=== PATIENT | female | born 2000 | race Caucasian/White ===

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

== ENCOUNTER 2021-04-19 00:24 | Emergency (ER) | payer OTHER, SELFPAY ==
[2021-04-19 00:24] VITALS: BP 146/87; PULSE 138; RESP 18; TEMP 36.9; O2SAT 97; BMI 24.7
--- NOTE | 2021-04-19 01:21 | ED.RN ---
See paper charting for medication orders.
[2021-04-19 01:25] LABS: Absolute Lymphocyte Count 0.66 X10^3/uL (0.83-4.51); Absolute Neutrophil Count 7.6 X10^3/uL (2.0-7.7); Basophil# 0.01 X10^3/uL; Basophil% 0.1 % (0-1); Eosinophil# 0.02 X10^3/uL; Eosinophils% 0.2 % (0-5); Hematocrit 43.2 % (37-47); Hemoglobin 13.9 g/dL (12.0-15.0); Lymphocyte # 0.66 X10^3/ul (0.83-4.51); Lymphocyte % 7.7 % (19-41); Mean Corp Hgb Conc 32.2 g/dL (32-36); Mean Corpuscular Hgb 29.1 pg (27.0-32.0); Mean Corpuscular Volume 90.4 fL (81-99); Mean Platelet Vol. 9.8 fl (6.2-12.0); Monocyte# 0.24 X10^3/uL; Monocyte% 2.8 % (0-10); NRBC Flagged by Analyzer 0 % (0-5); Neutrophil # 7.58 X10^3/uL (2.7-7.7); Platelet Count 220 K/mm3 (150-450); RBC Distribution Width CV 12.6 % (11.6-14.6); RBC Distribution Width SD 41.7 fl (35.1-43.9); Red Blood Count 4.78 M/mm3 (4.2-5.4); White Blood Count 8.5 K/mm3 (4.4-11.0)
[2021-04-19] MEDS: 0.9% Normal Saline 1,000 ML 999 ML IV (01:51)
[2021-04-19] MEDS: Morphine 4 MG/ML Syringe IV (01:52)
[2021-04-19] MEDS: Ondansetron 4 MG/2 ML Vial IV (01:52)
[2021-04-19 02:03] LABS: AST(SGOT) 14 U/L (15-37); Alanine Aminotransfer ALT/SGPT 17 U/L (13-56); Albumin, Serum 4.3 g/dL (3.2-5.0); Alkaline Phosphatase 61 U/L (45-117); Anion Gap 7 (5-15); BUN 24 mg/dL (7-18); BUN/Creat Ratio 26.4 RATIO (10-20); Bilirubin, Direct 0.12 mg/dL (0.00-0.30); Calcium,Total 8.8 mg/dL (8.5-10.1); Chloride 108 mmol/L (98-107); Creatinine, Serum 0.91 mg/dL (0.55-1.02); EST Glomerular Filtration Rate 83 mL/min (>60); Est Glom Filt Rate - Afr Amer 101 mL/min (>60); Estimated Creatinine Clearance 81.58 ml/min; Glucose 117 mg/dL (74-106); Lipase 77 U/L (73-393); Potassium 3.6 mmol/L (3.5-5.1); Protein, Total 8.3 g/dL (6.4-8.2); Sodium Level 141 mmol/L (136-145)
[2021-04-19 02:19] LABS: Mucous, Urine 0 SEEN /hpf (<or=2+)
[2021-04-19 02:21] LABS: Color, Urine Yellow (Yellow); Glucose, Dipstick Normal (Normal); Ketone-Dipstick 15 mg/dl (Negative); Leukocyte Esterase-Dipstick 25 /ul (Negative); Nitrite-Dipstick Negative (Negative); Occult Blood-Urine Negative /ul (Negative); Protein-Dipstick 15 mg/dl (Negative); Specific Gravity, Urine 1.025 (1.002-1.030); Urine Clarity Clear (Clear); Urine Urobilinogen Normal (Normal)
[2021-04-19 02:25] LABS: Internal QC Validated? YES +Cl - CLEAR BKGD; Pregnancy, Urine Negative Negative
[2021-04-19 02:28] LABS: Urine Bilirubin Dipstick 1 mg/dL (Negative)
[2021-04-19 02:29] LABS: Bacteria 1+ /hpf (None Seen)
[2021-04-19 02:30] LABS: Red Blood Cells-Urine 0 SEEN /hpf (0-5); Squamous Epithelial Cells - UA 0-5 SEEN /hpf (5-10); White Blood Cells 0-5 SEEN /hpf (0-5)
--- NOTE | 2021-04-19 03:02 | EX.ED.DYSGE1 ---
HPI History of Present Illness Chief Complaint: Abd Pain Narrative Narrative: Patient is a 20-year-old female who states that yesterday she had bouts of loose stool/diarrhea. She states that today she developed generalized abdominal discomfort with bouts of nausea and vomiting. She reports that there has been no sick contact and she denies any recent antibiotic use or travel outside the country. She states that she cannot get the pain and nausea under control and secondary to this presents to the hospital for evaluation [facility] Medical History (Updated 04/19/21 @ 03:[address] Watson Barreto, DO) Asthma History of kidney stones Hx of chest pain Home Medications cephalexin 500 mg PO TID 7 Days #21 cap 04/19/21 [Rx Last Taken Unknown] ondansetron 4 mg PO Q8H PRN 7 Days #21 tab 04/19/21 [Rx Last Taken Unknown] Allergy/AdvReac Type Severity Reaction Status Date / Time No Known Allergies Allergy Verified 04/19/21 00:27 Family History Father Heart disease Surgical History H/O wisdom tooth extraction History of knee surgery Social History (Updated 02/20/18 @ 16:22 by Cody DOMINGUEZ, PA) Smoking Status: Never smoker alcohol intake: never ROS ROS ED Constitutional Constitutional ED: Denies chills or fever(s) ENT ENT ED: Denies sore throat Cardiovascular Cardiovascular: Denies chest pain Respiratory/Chest Respiratory/Chest: Denies cough or dyspnea Gastrointestinal Gastrointestinal: Reports abdominal pain, diarrhea, nausea and vomiting Genitourinary Genitourinary ED: Denies dysuria Musculoskeletal Musculoskeletal: Reports myalgias Integumentary Denies rash Neurologic Neurologic: Denies headache(s) Hematologic/Lymphatic Hematologic/Lymphatic: Denies easy bleeding or easy bruising EXAM Physical Exam Const Vital Signs: 04/19/21 00:24 Temperature 98.4 F Temperature Source Oral Pulse Rate 138 H Respiratory Rate 18 Blood Pressure 146/87 H Blood Pressure Mean 106 Pulse Ox 97 Oxygen Delivery Method Room Air Positive well nourished and well developed General Appearance ED: well developed HEENT Reports dry mucous membranes Mouth ED: Yes dry mucous membranes Mouth: dry mucous membranes Eyes PERRL and EOMs intact bilaterally Neck supple Resp normal respiratory effort and clear to auscultation bilaterally Cardio regular rate and regular rhythm GI non-distended GI Narrative: Abdomen is soft and nondistended with hyperactive bowel sounds and mild diffuse pain with palpation. No voluntary guarding or rigidity no pulsatile mass Palpation: soft Extremity normal to inspection Neuro oriented x3 and CN's II-XII intact bilaterally Sensorium / Orientation: alert Motor Exam: strength 5/5 throughout Psych mental status grossly normal Skin no rashes or lesions noted MDM MDM MDM Narrative Medical decision making narrative: Patient presented to the ER afebrile. Her abdomen was soft and nonsurgical and therefore I felt no need for an emergent CT scan. Her history is most consistent with a viral stomach infection but as she does have physical exam findings to suggest dehydration basic blood work was obtained and patient was given IV medication. Blood work revealed no clinically significant findings. Urine does show +1 bacteria without contamination. After patient was given IV fluids and pain control she did report improvement of her symptoms. On reevaluation she is resting comfortably and abdomen remains soft and nonsurgical. Therefore I feel patient has a primary viral stomach infection leading to her majority symptoms with secondary UTI. However as she does not have signs of urosepsis or acute kidney injury she does not need further work-up and patient can be given medications and discharged home Lab Data Attestation: I reviewed the patient's lab results. Labs: Laboratory Results - last 24 hr 04/19/21 04/19/21 04/19/21 00:30 00:30 02:05 WBC 8.5 RBC 4.78 Hgb 13.9 Hct 43.2 MCV 90.4 MCH 29.1 MCHC 32.2 RDW Std Deviation 41.7 RDW Coeff of Simin 12.6 Plt Count 220 MPV 9.8 Immature Gran % (Auto) 0.200 Neut % (Auto) 89.0 H Lymph % (Auto) 7.7 L [place] % (Auto) 2.8 Eos % (Auto) 0.2 Baso % (Auto) 0.1 Absolute Neuts (auto) 7.6 Absolute Lymphs (auto) 0.66 L Nucleated RBC % 0 Sodium 141 Potassium 3.6 Chloride 108 H Carbon Dioxide 26.0 Anion Gap 7 BUN 24 H Creatinine 0.91 Estim Creat Clear Calc 81.58 Est GFR (MDRD) Af Amer 101 Est GFR (MDRD) Non-Af 83 BUN/Creatinine Ratio 26.4 H Glucose 117 H Calcium 8.8 Total Bilirubin 0.30 Direct Bilirubin 0.12 AST 14 L ALT 17 Alkaline Phosphatase 61 Total Protein 8.3 H Albumin 4.3 Globulin 4.0 Lipase 77 Urine Color Yellow Urine Clarity Clear Urine pH 5.0 Ur Specific [place] 1.025 Urine Protein 15 H Urine Glucose (UA) Normal Urine Ketones 15 H Urine Occult Blood Negative Urine Nitrite Negative Urine Bilirubin 1 H Urine Urobilinogen Normal Ur Leukocyte Esterase 25 H Urine RBC 0 SEEN Urine WBC 0-5 SEEN Ur Squamous Epith Cells 0-5 SEEN Urine Bacteria 1+ Urine Mucus 0 SEEN Urine Test Negative Discharge Plan Triage Chief Complaint: Abd Pain ED Provider: Watson Barreto Dx/Rx/DC Orders Clinical Impression: Nausea vomiting and diarrhea, UTI (urinary tract infection) Instructions: Urinary Tract Infections in Women, ED Gastroenteritis, Viral (Adult) Prescriptions: New ondansetron 4 mg tablet,disintegrating 4 mg PO Q8H PRN (Reason: nausea and vomiting) 7 Days Qty: 21 RF: 0 cephalexin 500 mg capsule 500 mg PO TID 7 Days Qty: 21 RF: 0 Primary Care Provider: Yenifer Genao Referrals: Yenifer Genao MD [Primary Care Provider] - Disposition Disposition: Home, Self Care Discharge Date/Time: 04/19/21 03:21
[2021-04-19] MEDS: Cephalexin 250 MG Capsule 500 MG PO (03:20)
[2021-04-19] MEDS: proMETHazine 25 MG/ML Syringe IV (03:20)
== END 2021-04-19 03:21 | disposition home or self-care (01) ==
PROVIDERS: Emergency Provider Emergency Medicine; PCP Pediatrics; Visit Provider Emergency Medicine
DX: N39.0 Urinary tract infection, site not specified (principal); R19.7 Diarrhea, unspecified; Z87.442 Personal history of urinary calculi; J45.909 Unspecified asthma, uncomplicated
CPT/HCPCS: 80048; 80076; 81001; 81025; 83690; 85025; 87086; 87088; 96374; 96375; 99284; J7030; A4216; J2405